=== PATIENT | female | born 1945 | race Caucasian/White ===

== ENCOUNTER 2016-08-05 23:33 | Inpatient (IN) | payer OTHER ==
[~2016-08-05] VITALS: Ht 160 cm; Wt 72.6 kg
[~2016-08-05 23:33] MED LIST: ACYC400T PO; ALBU8.5H2 HHN; ALPR0.5T PO; BECL8.7A5 HHN; CYCL-289 PO; FURO-144 PO; HYDR200T PO; IPRA0.2S18 HHN; MORP15TA17 PO; SERT100T PO; TRAZ-147 PO
[2016-08-05] MEDS ORDERED: ALBUTEROL FS 2.5 MG/0.5 ML VIAL.NEB ONE (23:49)
[2016-08-05] MEDS ORDERED: methylPREDNISolone SOD SUCC 125 MG/2ML VIAL ONE (23:50)
[2016-08-06] MEDS ORDERED: ALBUTEROL FS 2.5 MG/0.5 ML VIAL.NEB NEB ONE
[2016-08-06] MEDS ORDERED: methylPREDNISolone SOD SUCC 125 MG/2ML VIAL IV ONE
[2016-08-06 00:09] LABS: BASOPHILS % (AUTO) 0.6 % (0.0-2.0); DIFF TOTAL % 100 %; EOSINOPHILS # (AUTO) 0.1 /CMM (0.0-0.7); EOSINOPHILS % (AUTO) 0.6 % (0.0-6.0); HEMATOCRIT 41 % (33-45); HEMOGLOBIN 13.4 g/dL (11.5-14.8); LYMPHOCYTES # (AUTO) 1.6 /CMM (0.8-4.8); LYMPHOCYTES % (AUTO) 19.9 % (20.0-44.0); MEAN CORPUSCULAR HEMOGLOBIN 32 PG (26.0-33.0); MEAN CORPUSCULAR HGB CONC 33 g/dl (31.0-36.0); MEAN CORPUSCULAR VOLUME 98 fL (82-100); MONOCYTES # (AUTO) 0.8 /CMM (0.1-1.30); MONOCYTES % (AUTO) 9.3 % (2.0-12.0); NEUTROPHILS # (AUTO) 5.7 /CMM (1.8-8.9); NEUTROPHILS % (AUTO) 69.6 % (43.0-81.0); PLATELET COUNT (AUTO) 202 /CMM (150-450); RED BLOOD CELL COUNT(AUTO) 4.21 MIL/uL (4.0-5.2); WHITE BLOOD COUNT (AUTO) 8.1 K/uL (4.3-11.0)
[2016-08-06 00:20] LABS: CALCIUM, SERUM 8.8 mg/dL (8.5-10.1); CREATININE 0.8 mg/dL (0.6-1.3); POTASSIUM 3.3 mmol/L (3.5-5.1)
[2016-08-06 00:24] LABS: INR 1.03 (0.87-1.13); PROTHROMBIN TIME 11.1 SECS (9.5-12.7)
[2016-08-06 00:27] LABS: TROPONIN I 0.019 ng/mL (0.00-0.056)
[2016-08-06] MEDS ORDERED: ACETAMINOPHEN ES 500 MG TABLET ONE (00:28)
[2016-08-06 00:30] LABS: LACTIC ACID 1.1 mmol/L (0.4-2.0)
[2016-08-06] MEDS ORDERED: IOHEXOL-350 100 ML VIAL IV ONE (00:30)
[2016-08-06] MEDS ORDERED: ACETAMINOPHEN 325 MG TABLET PO ONE (00:30)
[2016-08-06 00:32] LABS: ALBUMIN 3.6 g/dL (3.4-5.0); BILIRUBIN,DIRECT 0.1 mg/dL (0.0-0.2); BILIRUBIN,TOTAL 0.4 mg/dL (0.2-1.0); INDIRECT BILIRUBIN 0.3 mg/dL (0.0-1.1)
[2016-08-06 01:12] LABS: KETONES,URINE NEGATIVE (NEGATIVE); LEUKOCYTE ESTERASE ,URINE NEGATIVE (NEGATIVE)
[2016-08-06 01:26] LABS: ADD UA MICROSCOPIC YES
[2016-08-06 01:32] LABS: ADD URINE CULTURE NO; MUCUS,URINE Rare /LPF (None Seen); RBC,URINE 0-3 /HPF (0-2); WBC,URINE 0-2 /HPF (0-3)
[2016-08-06] MEDS ORDERED: THEO400T PO (02:39)
[2016-08-06] MEDS ORDERED: CYCL5TAB PO (02:39)
[2016-08-06] MEDS ORDERED: VALA100026 PO (02:39)
[2016-08-06] MEDS ORDERED: MONT10TA22 PO (02:39)
[2016-08-06 04:00] VITALS: BP 133/61
[2016-08-06] MEDS ORDERED: LEVOFLOXACIN 500 MG /D5W 100ML 500 MG in PREMIX 1 EA IV SCH (04:00)
[2016-08-06] MEDS ORDERED: LEVOFLOXACIN 500 MG /D5W 100ML 100 ML IV ONE (04:17)
[2016-08-06] MEDS ORDERED: IV NS 0.9% 250 ML IV ONE (04:44)
[2016-08-06] MEDS ORDERED: IV SET PRIMARY PUMP SET 1 EA INFUS.SET MC ONE (04:44)
[2016-08-06] MEDS ORDERED: SECONDARY IV SET 1 EA INFUS.SET MC ONE (04:44)
[2016-08-06] MEDS ORDERED: methylPREDNISolone SOD SUCC 125 MG/2ML VIAL IV SCH (05:00)
[2016-08-06] MEDS ORDERED: methylPREDNISolone SOD SUCC 40 MG/ML VIAL ONE (05:12)
[2016-08-06] MEDS ORDERED: methylPREDNISolone SOD SUCC 125 MG/2ML VIAL ONE (05:16)
[2016-08-06 07:07] LABS: BASOPHILS % (AUTO) 0.2 % (0.0-2.0); DIFF TOTAL % 100 %; HEMATOCRIT 42 % (33-45); HEMOGLOBIN 13.5 g/dL (11.5-14.8); LYMPHOCYTES # (AUTO) 0.4 /CMM (0.8-4.8); LYMPHOCYTES % (AUTO) 5.8 % (20.0-44.0); MEAN CORPUSCULAR HEMOGLOBIN 32 PG (26.0-33.0); MEAN CORPUSCULAR HGB CONC 32 g/dl (31.0-36.0); MEAN CORPUSCULAR VOLUME 98 fL (82-100); MONOCYTES % (AUTO) 0.6 % (2.0-12.0); NEUTROPHILS # (AUTO) 6.8 /CMM (1.8-8.9); NEUTROPHILS % (AUTO) 93.4 % (43.0-81.0); PLATELET COUNT (AUTO) 189 /CMM (150-450); RED BLOOD CELL COUNT(AUTO) 4.24 MIL/uL (4.0-5.2); WHITE BLOOD COUNT (AUTO) 7.3 K/uL (4.3-11.0)
[2016-08-06] MEDS ORDERED: methylPREDNISolone SOD SUCC 40 MG/ML VIAL IV SCH (07:27)
[2016-08-06] MEDS ORDERED: IPRATROPIUM NEB FS 0.5 MG/2.5 ML AMPUL.NEB NEB SCH (07:35)
[2016-08-06] MEDS ORDERED: ALBUTEROL FS 2.5 MG/3 ML VIAL.NEB NEB SCH (07:35)
[2016-08-06] MEDS ORDERED: IPRATROPIUM/ALBUTEROL INHALER IH SCH (07:35)
[2016-08-06 07:39] LABS: CALCIUM, SERUM 8.7 mg/dL (8.5-10.1); CREATININE 0.8 mg/dL (0.6-1.3); POTASSIUM 3.4 mmol/L (3.5-5.1)
[2016-08-06 08:00] VITALS: BP 145/58
[2016-08-06] MEDS ORDERED: LEVO500T15 PO (08:59)
[2016-08-06] MEDS ORDERED: PRED10TA PO (08:59)
[2016-08-06] MEDS ORDERED: PRED20TA PO (08:59)
[2016-08-06] MEDS ORDERED: SERTRALINE HCL 50 MG TABLET PO SCH (09:12)
[2016-08-06] MEDS ORDERED: CYCLOBENZAPRINE 10 MG TABLET PO SCH ×2 (09:14→09:30)
[2016-08-06] MEDS: TRAZODONE 50 MG TABLET PO SCH ×2 (09:15→09:26)
[2016-08-06] MEDS ORDERED: MORPHINE SULFATE SR 15 MG TABLET.SA PO SCH (09:21)
[2016-08-06] MEDS ORDERED: ALPRAZOLAM 0.5 MG TABLET PO SCH (09:22)
[2016-08-06] MEDS ORDERED: LEVOFLOXACIN (500MG) 500 MG TABLET PO SCH (09:30)
[2016-08-06] MEDS ORDERED: MONTELUKAST SODIUM (10MG) 10 MG TABLET PO SCH (09:30)
[2016-08-06] MEDS ORDERED: POTASSIUM CHLORIDE 20 MEQ TAB.PRT.SR PO ONE (09:30)
[2016-08-06] MEDS ORDERED: HYDROXYCHLOROQUINE 200 MG TABLET PO SCH (09:30)
[2016-08-06] MEDS ORDERED: IPRATROPIUM NEB FS 0.5 MG/2.5 ML AMPUL.NEB NEB PRN (09:30)
[2016-08-06] MEDS ORDERED: FUROSEMIDE 40 MG TABLET PO SCH (13:00)
[2016-08-06] MEDS ORDERED: ALBUTEROL FS 2.5 MG/0.5 ML VIAL.NEB NEB PRN (13:30)
[2016-08-07] MEDS ORDERED: LEVOFLOXACIN 500 MG /D5W 100ML 500 MG in PREMIX 1 EA IV SCH (06:00)
[2016-08-07] MEDS ORDERED: predniSONE 10 MG TABLET PO SCH (09:00)
[2016-08-07] MEDS ORDERED: predniSONE 20 MG TABLET PO SCH (09:00)
== END 2016-08-06 12:33 | disposition home or self-care (01) | DRG 191 ==
LOC: ER 23:41 → TELE1 08-06 03:07 → UNDODISIN 08-06 10:56
PROVIDERS: ADMIT Internal Medicine; ATTEND Internal Medicine
DX: J44.1 Chronic obstructive pulmonary disease with (acute) exacerbation (principal); C34.90 Malignant neoplasm of unspecified part of unspecified bronchus or lung; Z87.891 Personal history of nicotine dependence; I25.10 Atherosclerotic heart disease of native coronary artery without angina pectoris; G89.29 Other chronic pain; I25.2 Old myocardial infarction; F32.9 Major depressive disorder, single episode, unspecified; I87.2 Venous insufficiency (chronic) (peripheral)
CPT/HCPCS: 36415; 71010-TC; 80048-TC; 80076-TC; 81000-TC; 83605-TC; 83880; 84484-TC; 85025-TC; 85730-TC; 87040-TC; 87081-TC; 93971-TC; A4216; A4606; J1956; J2920; J2930; J7050; Q9967; Z7610

== ENCOUNTER 2017-09-20 07:24 | Inpatient (IN) | payer OTHER ==
[~2017-09-20] VITALS: Ht 160 cm; Wt 69.9 kg
[~2017-09-20 07:24] MED LIST changes: -ACYC400T PO; -ALBU8.5H2 HHN; +ALBU8.5H8 HHN; +CYCL5TAB PO; -HYDR200T PO; +HYDR200T81 PO; +LEVO500T75 PO; +MONT10TA22 PO; +PRED10TA PO; +PRED20TA PO; +THEO400T PO; -TRAZ-147 PO; +TRAZ-214 PO; +VALA100026 PO
--- NOTE | 2017-09-20 07:37 | NUR ---
BIB DTR DUE NAUSEA, "FEELING SICK" AND NO APETITE. PATIENT IS AWAKE ALERT, APPERS IN NO DISTRESS. PATIENT IS AWAKE AND ALERT. PATIENT IS AFEBRILE. PATIENT ON O2 VIA NC @ 2LPM. GOWNED PATIENT AND CONNECTED TO TELE MONITOR. MD BASURTO AT BEDSIDE
--- NOTE | 2017-09-20 07:39 | NUR ---
MD BASURTO AT BEDSIDE
[2017-09-20] MEDS ORDERED: IV NS 0.9% 500 ML BAG IV ONE (08:00)
[2017-09-20 08:10] LABS: BASOPHILS # (AUTO) 0.1 /CMM (0.0-0.2); BASOPHILS % (AUTO) 0.5 % (0.0-2.0); EOSINOPHILS % (AUTO) 0.1 % (0.0-6.0); HEMATOCRIT 45 % (33-45); HEMOGLOBIN 14.9 g/dL (11.5-14.8); LYMPHOCYTES # (AUTO) 0.6 /CMM (0.8-4.8); LYMPHOCYTES % (AUTO) 5.7 % (20.0-44.0); MEAN CORPUSCULAR HGB CONC 33 g/dl (31.0-36.0); MEAN CORPUSCULAR VOLUME 95 fL (82-100); MONOCYTES # (AUTO) 0.9 /CMM (0.1-1.30); MONOCYTES % (AUTO) 7.9 % (2.0-12.0); NEUTROPHILS # (AUTO) 9.7 /CMM (1.8-8.9); NEUTROPHILS % (AUTO) 85.8 % (43.0-81.0); PLATELET COUNT (AUTO) 336 /CMM (150-450); RDW COEFFICIENT OF VARIATION 14.3 (11.5-15.0); RED BLOOD CELL COUNT(AUTO) 4.71 MIL/uL (4.0-5.2); WHITE BLOOD COUNT (AUTO) 11.3 K/uL (4.3-11.0)
[2017-09-20 08:26] LABS: TROPONIN I 0.028 ng/mL (0.00-0.056)
[2017-09-20 08:29] LABS: INR 1.41 (0.87-1.13)
--- NOTE | 2017-09-20 08:31 | NUR ---
URINE SAMPLE SENT TO LAB
[2017-09-20 08:34] LABS: ALANINE AMINOTRANSFERASE 46 U/L (12-78); ALBUMIN 3.2 g/dL (3.4-5.0); ALKALINE PHOSPHATASE 431 U/L (46-116); ASPARTATE AMINOTRANSFERASE 26 U/L (15-37); BILIRUBIN,DIRECT 0.2 mg/dL (0.0-0.2); BILIRUBIN,TOTAL 0.7 mg/dL (0.2-1.0); CALCIUM, SERUM 8.8 mg/dL (8.5-10.1); CARBON DIOXIDE 31 mmol/L (21-32); CHLORIDE 92 mmol/L (98-107); CREATININE 0.6 mg/dL (0.6-1.3); GLUCOSE 96 mg/dL (74-106); SODIUM SERUM 134 mmol/L (136-145); TOTAL PROTEIN, SERUM 7.5 g/dL (6.4-8.2); UREA NITROGEN, BLOOD 7 mg/dL (7-18)
[2017-09-20 08:37] LABS: POTASSIUM 2.6 mmol/L (3.5-5.1)
[2017-09-20 08:47] LABS: APPEARANCE,URINE CLEAR (CLEAR); BILIRUBIN,URINE NEGATIVE (NEGATIVE); BLOOD, URINE NEGATIVE Ery/uL (NEGATIVE); COLOR,URINE YELLOW (YELLOW); KETONES,URINE 1+ (NEGATIVE); LEUKOCYTE ESTERASE ,URINE NEGATIVE (NEGATIVE); NITRITE, URINE NEGATIVE (NEGATIVE); PROTEIN,URINE NEGATIVE (NEGATIVE); UGLUCOSE NEGATIVE (NEGATIVE); UROBILINOGEN,URINE 0.2 EU/dL (0.2)
[2017-09-20] MEDS ORDERED: POTASSIUM CHLORIDE 20 MEQ TAB.PRT.SR PO ONE ×3 (08:51→10:00)
[2017-09-20] MEDS ORDERED: CEFTRIAXONE 1GM BAG (ER ONLY) 50 ML IV ONE (08:51)
[2017-09-20] MEDS ORDERED: Magnesium 1GM/D5W 100ML PREMIX 100 ML IV ONE (08:51)
[2017-09-20] MEDS ORDERED: Magnesium 1GM/D5W 100ML PREMIX PIGGYBACK IV ONE (09:00)
[2017-09-20] MEDS ORDERED: CEFTRIAXONE 1GM BAG (ER ONLY) 1 GM/50 ML PIGGYBACK IV ONE (09:00)
[2017-09-20] MEDS ORDERED: PRED5TAB PO (09:03)
[2017-09-20] MEDS ORDERED: ALBU2TAB4 PO (09:03)
[2017-09-20] MEDS ORDERED: POLY17PO4 PO (09:03)
--- NOTE | 2017-09-20 09:10 | NUR ---
REPORT GIVEN TO CAITLIN GREENWOOD FOR PETE
--- NOTE | 2017-09-20 09:27 | NUR ---
DR. SIM AT BEDSIDE.
--- NOTE | 2017-09-20 09:40 | NUR ---
RN NOTE RECEIVED REPORT FROM DENILSON FROM ER. RECEIVED PATIENT ALERT AND ORIENTED X 4, SHE IS ABLE TO MAKE THINGS KNOWN AND VERBALIZE NEEDS. BREATHING EVEN AND UNLABORED, ON CONTINUOUS O2 2L VIA NC. NO DISTRESS NOTED. PATIENT DENIES PAIN AT THIS TIME. ON PARALEGAL SUPERVISOR SINUS TACH HR OF 110. RIGHT FA IV WAS REMOVED SECONDARY TO INFILTRATION. REINSERTED NEW IV SITE ON LEFT HAND 22 GAUGE INTACT AND PATENT. PATIENT IS ABLE TO AMBULATE WITH ASSISTANCE TO BATHROOM. BED LOCK AND LOW POSITION. ALL SAFETY MEASURES PROVIDED. WILL CONTINUE TO MONITOR CONTINUITY OF CARE.
[2017-09-20 09:45] VITALS: BP 121/63
--- NOTE | 2017-09-20 09:50 | NUR ---
PATIENT WAS TRANSFFERED TO TELE1. S
[2017-09-20 10:00] VITALS: BP 121/63
[2017-09-20] MEDS ORDERED: ALBUTEROL FS 2.5 MG/0.5 ML VIAL.NEB NEB PRN (10:00)
[2017-09-20] MEDS: MORPHINE SULFATE SR 15 MG TABLET.SA PO SCH ×2 (10:00→16:25)
[2017-09-20] MEDS: MONTELUKAST SODIUM (10MG) 10 MG TABLET PO SCH (11:31)
[2017-09-20] MEDS: ALPRAZOLAM 0.5 MG TABLET PO SCH ×3 (11:31→16:25)
[2017-09-20] MEDS: POLYETHYLENE GLYCOL 3350 17 GM POWD.PACK PO SCH (11:31)
[2017-09-20] MEDS: HYDROXYCHLOROQUINE 200 MG TABLET PO SCH ×2 (11:31→16:23)
[2017-09-20] MEDS: ENOXAPARIN SODIUM 40 MG/0.4 ML DISP.SYRIN SQ SCH (11:34)
[2017-09-20] MEDS: Potassium Chloride 20 MEQ in IV NS 0.9% 1,000 ML IV PRN (12:02)
[2017-09-20] MEDS: LEVOFLOXACIN 500 MG /D5W 100ML 500 MG in PREMIX 1 EA IV SCH (13:02)
[2017-09-20] MEDS: CYCLOBENZAPRINE 10 MG TABLET PO SCH (13:07)
[2017-09-20] MEDS: THEOPHYLLINE TAB 24HR 400 MG TAB.SR. PO SCH (13:50)
[2017-09-20] MEDS ORDERED: DIGOXIN INJ 0.5 MG/2 ML AMPUL IV ONE (15:30)
[2017-09-20] MEDS: ONDANSETRON HCL/PF 4 MG/2 ML VIAL IV PRN (15:40)
--- NOTE | 2017-09-20 15:40 | NUR ---
RN NOTE CALLED MD DR SIM RELAYED PATIENT HR IS A-FIB SINUS TACHY AT 130-140, MD ORDERED DIGOXIN 0.25MCG IV X 1, AND METOPROLOL 25MG BID PO, AND ZOFRAN 4MG IV Q4H PRN. PATIENT MADE AWARE CARRIED OUT AND NOTED.
[2017-09-20 16:00] VITALS: BP 99/55
--- NOTE | 2017-09-20 16:10 | NUR ---
RN NOTE AFTER MEDICATION GIVEN PATIENT REMAINED STABLE WITH CARDIAC RHYTHM OF UNCONTROLLED A-FIB HR OF 118. NO DISTRESS NOTED
[2017-09-20] MEDS: TRAZODONE 50 MG TABLET PO SCH (16:25)
[2017-09-20] MEDS ORDERED: METOPROLOL TARTRATE 25 MG TABLET PO SCH (17:00)
--- NOTE | 2017-09-20 18:41 | NUR ---
RN NOTE PATIENT REMAINED STABLE WITH NO ACUTE DISTRESS NOTED. SEISMOLOGY TEACHER OF UNCONTROLLED A-FIB HR OF 117. WILL ENDORSE TO NEXT SHIFT TO CONTINUE CONTINUITY OF CARE.
--- NOTE | 2017-09-20 19:30 | NUR ---
BRIDGE PAINTER NOTES, RECEIVED PATIENT IN BED ALERT AND ORIENTED ABLE TO COMMUNICATE NEEDS, BREATHING EVEN AND UNLABORED NO S/S OF ACUTE DISTRESS/SOB NOTED AT THIS TIME, IVF RUNNING AT THIS TIME, FOR LOW POTASSIUM LEVEL, IV SITE INTACT AND PATENT, BED LOCKED AN IN LOWEST POSITION, CALL LIGHT W/I REACH, INDEPENDENT WITH POSITIONING, ASSISTED AT ALL TIME FOR TOILETING. WILL CONTINUE TO MONITOR CLOSELY.
[2017-09-20] MEDS: ALPRAZOLAM 0.25 MG TABLET PO PRN (23:05)
[2017-09-21] VITALS: BP 124/71
--- NOTE | 2017-09-21 01:30 | NUR ---
RN TD NOTES, TRANSFERRED PATIENT TO CAITLIN WHITING FOR CONTINUATION OF CARE.
--- NOTE | 2017-09-21 01:35 | NUR ---
TELE/RN NOTES RECEIVED REPORT AND PT. FROM CAITLIN MOYA. RECEIVED PT. LYING IN BED. PT. IS AWAKE, ALERT AND ORIENTED X4. BREATHING EVEN AND UNLABORED ON 2LPM O2 VIA NC. NO SOB, RESPIRATORY DISTRESS OR COMPLAINTS OF PAIN NOTED AT THIS TIME. PT. WITH EXTERNAL AIRCRAFT DESIGNER PRESENT AND INTACT CURRENT RHYTHM = AFIB HR 118. PT. WITH LEFT HAND 22 GAUGE PERIPHERAL IV PRESENT, PATENT AND INTACT ADMINISTERING TO PT. NS WITH 20 MEQ KCL @ 100ML/HR. BED LOCKED AND IN LOWEST POSITION, SIDE RAILS UP X3, BED ALARM ON, CALL LIGHT WITHIN REACH, WILL CONTINUE TO MONITOR.
--- NOTE | 2017-09-21 03:58 | NUR ---
TELE/RN NOTES NOTIFIED DR. SIM PT. IS UNCONTROLLED AFIB HR 130'S-140'S. PT. IS ASYMPTOMATIC, NO COMPLAINTS OF CHEST PAIN OR PALPITATIONS. PT. BLOOD PRESSURE IS STABLE BP 113/85. BREATHING EVEN AND UNLABORED ON 3LPM O2 VIA NC. PER DR. SIM NEW ORDERS: METOPROLOL 50MG PO TIMES ONE NOW, AND INCREASE PT. SCHEDULED METOPROLOL BID FROM 25MG PO BID TO 50MG PO BID. WILL CARRY OUT ORDERS. WILL CONTINUE TO MONITOR.
[2017-09-21 04:00] VITALS: BP 113/55
[2017-09-21] MEDS ORDERED: METOPROLOL TARTRATE 50 MG TABLET PO ONE (04:30)
[2017-09-21] MEDS ORDERED: IV PREMIX NS +20MEQ KCL 1 L IV ONE (04:46)
[2017-09-21] MEDS: Potassium Chloride 20 MEQ in IV NS 0.9% 1,000 ML IV PRN (04:50)
[2017-09-21 06:45] LABS: ALANINE AMINOTRANSFERASE 40 U/L (12-78); ALBUMIN 2.7 g/dL (3.4-5.0); ALKALINE PHOSPHATASE 338 U/L (46-116); ASPARTATE AMINOTRANSFERASE 30 U/L (15-37); BASOPHILS % (AUTO) 0.3 % (0.0-2.0); BILIRUBIN,TOTAL 0.5 mg/dL (0.2-1.0); CALCIUM, SERUM 8.6 mg/dL (8.5-10.1); CARBON DIOXIDE 28 mmol/L (21-32); CHLORIDE 101 mmol/L (98-107); EOSINOPHILS % (AUTO) 0.4 % (0.0-6.0); GLUCOSE 82 mg/dL (74-106); HEMATOCRIT 45 % (33-45); HEMOGLOBIN 14.7 g/dL (11.5-14.8); LYMPHOCYTES # (AUTO) 0.8 /CMM (0.8-4.8); LYMPHOCYTES % (AUTO) 7.1 % (20.0-44.0); MEAN CORPUSCULAR HGB CONC 33 g/dl (31.0-36.0); MEAN CORPUSCULAR VOLUME 97 fL (82-100); MONOCYTES # (AUTO) 1.1 /CMM (0.1-1.30); MONOCYTES % (AUTO) 9.9 % (2.0-12.0); NEUTROPHILS # (AUTO) 8.8 /CMM (1.8-8.9); NEUTROPHILS % (AUTO) 82.3 % (43.0-81.0); PLATELET COUNT (AUTO) 288 /CMM (150-450); POTASSIUM 4.7 mmol/L (3.5-5.1); RDW COEFFICIENT OF VARIATION 14.6 (11.5-15.0); RED BLOOD CELL COUNT(AUTO) 4.68 MIL/uL (4.0-5.2); SODIUM SERUM 137 mmol/L (136-145); TOTAL PROTEIN, SERUM 6.5 g/dL (6.4-8.2); UREA NITROGEN, BLOOD 8 mg/dL (7-18); WHITE BLOOD COUNT (AUTO) 10.7 K/uL (4.3-11.0)
--- NOTE | 2017-09-21 06:45 | NUR ---
TELE/RN NOTES PT. IS LYING IN BED RESTING. BREATHING EVEN AND UNLABORED ON 2LPM O2 VIA NC. NO SOB, RESPIRATORY DISTRESS OR COMPLAINTS OF PAIN NOTED AT THIS TIME. PT. WITH EXTERNAL MOLD MACHINE OPERATOR PRESENT AND INTACT CURRENT RHYTHM = AFIB HR 109. PT. WITH LEFT HAND 22 GAUGE PERIPHERAL IV PRESENT, PATENT AND INTACT ADMINISTERING TO PT. NS WITH 20 MEQ KCL @ 100ML/HR. ALL PT. NEEDS MET. BED LOCKED AND IN LOWEST POSITION, SIDE RAILS UP X3, BED ALARM ON, CALL LIGHT WITHIN REACH, WILL ENDORSE TO DAYSHIFT NURSE FOR CONTINUITY OF CARE.
[2017-09-21 06:49] LABS: CREATININE 0.5 mg/dL (0.6-1.3)
--- NOTE | 2017-09-21 07:25 | NUR ---
TELE/RN NOTES PT. IS LYING IN BED RESTING. BREATHING EVEN AND UNLABORED ON 2LPM O2 VIA NC. NO SOB, NO RESPIRATORY DISTRESS OR COMPLAINTS OF PAIN NOTED AT THIS TIME. PT. WITH EXTERNAL CHROME TANNING DRUM OPERATOR PRESENT AND INTACT CURRENT RHYTHM = AFIB HR 109. PT. WITH LEFT HAND 22 GAUGE PERIPHERAL IV PRESENT, PATENT AND INTACT ADMINISTERING TO PT. NS WITH 20 MEQ KCL @ 100ML/HR. ALL PT. NEEDS MET. BED LOCKED AND IN LOWEST POSITION, SIDE RAILS UP X3, BED ALARM ON, CALL LIGHT WITHIN REACH, WILL CONTINUE TO MONITOR
[2017-09-21 08:00] VITALS: BP 109/70
[2017-09-21] MEDS: MORPHINE SULFATE SR 15 MG TABLET.SA PO SCH ×2 (08:29→18:16)
[2017-09-21] MEDS: HYDROXYCHLOROQUINE 200 MG TABLET PO SCH ×2 (08:31→18:16)
[2017-09-21] MEDS: ONDANSETRON HCL/PF 4 MG/2 ML VIAL IV PRN (08:31)
[2017-09-21] MEDS: TRAZODONE 50 MG TABLET PO SCH ×2 (08:32→18:21)
[2017-09-21] MEDS: CYCLOBENZAPRINE 10 MG TABLET PO SCH (08:32)
[2017-09-21] MEDS: SERTRALINE HCL 50 MG TABLET PO SCH (08:32)
[2017-09-21] MEDS: MONTELUKAST SODIUM (10MG) 10 MG TABLET PO SCH (08:32)
[2017-09-21] MEDS: ENOXAPARIN SODIUM 40 MG/0.4 ML DISP.SYRIN SQ SCH (08:44)
[2017-09-21] MEDS: POLYETHYLENE GLYCOL 3350 17 GM POWD.PACK PO SCH (08:46)
[2017-09-21] MEDS: THEOPHYLLINE TAB 24HR 400 MG TAB.SR. PO SCH (08:47)
[2017-09-21] MEDS ORDERED: IPRATROPIUM NEB FS 0.5 MG/2.5 ML AMPUL.NEB NEB PRN (09:00)
[2017-09-21] MEDS ORDERED: METOPROLOL TARTRATE 50 MG TABLET PO SCH (09:00)
[2017-09-21] MEDS: ALBUTEROL FS 2.5 MG/3 ML VIAL.NEB NEB SCH ×3 (09:30→23:29)
[2017-09-21] MEDS: ACETYLCYSTEINE 20% SOLN 800 MG/4 ML VIAL NEB SCH ×3 (09:32→23:29)
[2017-09-21] MEDS: IPRATROPIUM NEB FS 0.5 MG/2.5 ML AMPUL.NEB NEB SCH ×3 (09:32→23:29)
[2017-09-21] MEDS: ASPIRIN EC 325 MG TABLET.DR PO SCH (09:58)
[2017-09-21] MEDS: methylPREDNISolone SOD SUCC 40 MG/ML VIAL IV SCH ×3 (10:46→17:00)
--- NOTE | 2017-09-21 11:08 | NUR ---
WOUND CARE CONSULT: PT PRESENTS WITH SKIN TEAR TO LEFT HAND WHICH SHE STATES HAPPENED TWO WEEKS AGO. SACRAL SCARRING NOTED WITH BLANCHABLE REDNESS. PT STATES THAT SHE LOST 100 LBS DUE TO HER ILLNESS. ALL SKIN PROTECTION AND WOUND RECOMMENDATIONS DISCUSSED WITH NURSING STAFF. RECOMMEND SURGICAL EVAL FOR LEFT HAND WOUND. WILL SEE PRN. FRENCH IN AGREEMENT WITH PLAN OF CARE. Addendum: 09/21/17 at 1110 by SACHI ORTEGA WNDNU Amended: Links added.
[2017-09-21] MEDS: LEVOFLOXACIN 500 MG /D5W 100ML 500 MG in PREMIX 1 EA IV SCH (11:56)
[2017-09-21 12:00] VITALS: BP 119/53
--- NOTE | 2017-09-21 12:29 | NUR ---
RN NOTES CALLED DR. SIM TO CLARIFY THEOPHYLLINE PT STATING SHE IS TAKING 1000MG DAILY PER DR. SIM PT TO TAKE 400 MG DAILY TOTAL AND OKAY TO GIVE ANOTHER 200MG TODAY, PER DR. SIM PT TO CONTINUE NS + 20 MEQ OF POTASSIUM IV FLUIDS, POTASSIUM LEVEL 4.7 WILL CONTINUE TO MONITOR
[2017-09-21] MEDS: DIGOXIN 0.125 MG TABLET PO SCH (13:32)
[2017-09-21] MEDS: DILTIAZEM HCL 30 MG TABLET PO SCH ×3 (13:33→23:24)
[2017-09-21] MEDS: ALPRAZOLAM 0.25 MG TABLET PO PRN ×2 (14:38→21:03)
[2017-09-21] MEDS ORDERED: THEOPHYLLINE TAB 24HR 400 MG TAB.SR. PO ONE (15:30)
[2017-09-21 16:00] VITALS: BP 114/55
[2017-09-21] MEDS ORDERED: MORPHINE SULFATE IR 15 MG TABLET PO PRN (19:30)
--- NOTE | 2017-09-21 19:30 | NUR ---
PROGRAM OR PROJECT ADMINISTRATOR NOTES, RECEIVED PATIENT IN BED ALERT AND ORIENTED ABLE TO COMMUNICATE NEEDS, BREATHING EVEN AND UNLABORED NO S/S OF ACUTE DISTRESS/SOB NOTED AT THIS TIME, CONTINUE IN IVF 20meQ RUNNING AT THIS TIME DR. SIM, IV SITE INTACT AND PATENT IN RIGHT HAND, BED LOCKED AN IN LOWEST POSITION, CALL LIGHT W/I REACH, INDEPENDENT WITH POSITIONING, ASSISTED AT ALL TIME FOR TOILETING. WILL CONTINUE TO MONITOR CLOSELY
--- NOTE | 2017-09-21 19:30 | NUR ---
TELE/RN NOTES PT. IS LYING IN BED RESTING. BREATHING EVEN AND UNLABORED ON 3LPM O2 VIA NC. NO SOB, NO RESPIRATORY DISTRESS OR COMPLAINTS OF PAIN NOTED AT THIS TIME. PT. WITH EXTERNAL DIRECTOR OF SCIENCE PRESENT AND INTACT CURRENT RHYTHM = AFIB HR 84. PT. WITH RFA 22 GAUGE PERIPHERAL IV PRESENT, PATENT AND INTACT ADMINISTERING TO PT. NS WITH 20 MEQ KCL @ 100ML/HR. ALL PT. NEEDS MET. BED LOCKED AND IN LOWEST POSITION, SIDE RAILS UP X3, BED ALARM ON, CALL LIGHT WITHIN REACH, ENDORSED TO NEXT SHIFT FOR CONTINUITY OF CARE
[2017-09-21 20:00] VITALS: BP 104/54
[2017-09-22] VITALS: BP 126/92
[2017-09-22] MEDS ORDERED: IV PREMIX NS +20MEQ KCL 1 L IV ONE (02:35)
[2017-09-22] MEDS: Potassium Chloride 20 MEQ in IV NS 0.9% 1,000 ML IV PRN (02:44)
[2017-09-22] MEDS: DILTIAZEM HCL 30 MG TABLET PO SCH ×4 (05:34→23:09)
--- NOTE | 2017-09-22 06:45 | NUR ---
DIRECTOR EDUCATIONAL RADIO NOTES, PATIENT IN BED SEEPING AT THIS TIME, BUT EASILY AROUSABLE, ABLE TO COMMUNICATE NEEDS, BREATHING EVEN AND UNLABORED NO S/S OF ACUTE DISTRESS/SOB NOTED AT THIS TIME, CONTINUE IN IVF 20meQ RUNNING AT THIS TIME DR. SIM, IV SITE INTACT AND PATENT IN RIGHT HAND, BED LOCKED AN IN LOWEST POSITION, NO SIGNIFICANT PETE DURING THE SHIFT NOTED WITH HR ELEVATED AT TIMES, CARDIZEM ADMINISTERED ORDERED,CALL LIGHT W/I REACH, INDEPENDENT WITH POSITIONING, ASSISTED AT ALL TIME FOR TOILETING. WILL ENDORSE CONTINUITY OF CARE TO ONCOMING SHIFT
[2017-09-22] MEDS: ACETYLCYSTEINE 20% SOLN 800 MG/4 ML VIAL NEB SCH ×3 (07:34→23:27)
[2017-09-22] MEDS: ALBUTEROL FS 2.5 MG/3 ML VIAL.NEB NEB SCH ×3 (07:34→23:27)
[2017-09-22] MEDS: IPRATROPIUM NEB FS 0.5 MG/2.5 ML AMPUL.NEB NEB SCH ×3 (07:34→23:27)
--- NOTE | 2017-09-22 07:40 | NUR ---
DINING SERVICE SUPERVISOR OPENING RECEIVED PATIENT A.OX3 STATES CONSTANT PAIN WHICH SHE TAKES MS PO 60MG Q12H. PER EMAR PATIENT IS TO START THIS DOSE TONIGHT..PER MD RONEY WATKINS TO GIVE THIS AM. PATIENT ON 3LPM NC SATTING 94%. NO SOB, DIFFICULTY BREATHING. PATIENT DENIES N/V/D AT THIS TIME. ALL NEEDS IN REACH, SAFETY PRECAUTIONS IN PLACE. TELE UNCONTROLLED AFIB 110-130. MESSAGE TO DR SIM IN REGARDS TO PATIENT COMPLAINING STILL OF PALPITATIONS/ ACID REFLUX TYPE PAIN AND TELE UNCONTROLLED AFIB THROUGHOUT NIGHT.
[2017-09-22 07:43] LABS: HEMATOCRIT 43 % (33-45); HEMOGLOBIN 14.1 g/dL (11.5-14.8); LYMPHOCYTES # (AUTO) 0.6 /CMM (0.8-4.8); LYMPHOCYTES % (AUTO) 5.1 % (20.0-44.0); MEAN CORPUSCULAR HGB CONC 33 g/dl (31.0-36.0); MEAN CORPUSCULAR VOLUME 96 fL (82-100); MONOCYTES # (AUTO) 0.7 /CMM (0.1-1.30); MONOCYTES % (AUTO) 5.4 % (2.0-12.0); NEUTROPHILS # (AUTO) 11.2 /CMM (1.8-8.9); NEUTROPHILS % (AUTO) 89.5 % (43.0-81.0); PLATELET COUNT (AUTO) 284 /CMM (150-450); RDW COEFFICIENT OF VARIATION 14.5 (11.5-15.0); RED BLOOD CELL COUNT(AUTO) 4.52 MIL/uL (4.0-5.2); WHITE BLOOD COUNT (AUTO) 12.6 K/uL (4.3-11.0)
--- NOTE | 2017-09-22 07:48 | NUR ---
OPTIONS TRADER NOTES PER DR SIM ORDER METOPROLOL 50MG Q12H. NO OTHER ORDERS.
[2017-09-22 07:55] LABS: CARBON DIOXIDE 27 mmol/L (21-32); CHLORIDE 103 mmol/L (98-107); CREATININE 0.6 mg/dL (0.6-1.3); GLUCOSE 122 mg/dL (74-106); POTASSIUM 5.3 mmol/L (3.5-5.1); SODIUM SERUM 137 mmol/L (136-145); UREA NITROGEN, BLOOD 15 mg/dL (7-18)
[2017-09-22 08:00] VITALS: BP 98/42
[2017-09-22] MEDS ORDERED: MORPHINE SULFATE SR 15 MG TABLET.SA PO SCH ×2 (08:00→21:00)
[2017-09-22] MEDS: MORPHINE SULFATE SR 30 MG TABLET.SA PO SCH ×2 (08:17→20:38)
[2017-09-22] MEDS: SERTRALINE HCL 50 MG TABLET PO SCH (08:18)
[2017-09-22] MEDS: TRAZODONE 50 MG TABLET PO SCH ×2 (08:18→17:15)
[2017-09-22] MEDS: HYDROXYCHLOROQUINE 200 MG TABLET PO SCH ×2 (08:18→17:15)
[2017-09-22] MEDS: MONTELUKAST SODIUM (10MG) 10 MG TABLET PO SCH (08:18)
[2017-09-22] MEDS: methylPREDNISolone SOD SUCC 40 MG/ML VIAL IV SCH ×3 (08:18→17:15)
[2017-09-22] MEDS: ASPIRIN EC 325 MG TABLET.DR PO SCH (08:18)
[2017-09-22] MEDS: CYCLOBENZAPRINE 10 MG TABLET PO SCH (08:19)
[2017-09-22] MEDS: POLYETHYLENE GLYCOL 3350 17 GM POWD.PACK PO SCH (08:19)
[2017-09-22] MEDS: ENOXAPARIN SODIUM 40 MG/0.4 ML DISP.SYRIN SQ SCH (08:28)
--- NOTE | 2017-09-22 08:44 | NUR ---
TD RN NOTES DR SIM AT BEDSIDE. UPDATED ON PATIENT CONDITION. PER MD PATIENT TO START ON AMIO DRIP WITH PROTOCOL BOLUS/DRIP. PATIENT DAUGHTER BIB CALLED AND UPDATED BY DR SIM PER REQUEST WELL.
[2017-09-22] MEDS ORDERED: AMIODARONE 150 MG in IV D5W 100 ML IV ONE (09:00)
[2017-09-22] MEDS ORDERED: METOPROLOL TARTRATE 50 MG TABLET PO SCH (09:00)
[2017-09-22] MEDS: IV 1/2NS 1000 ML 1,000 ML IV PRN (09:00)
[2017-09-22] MEDS ORDERED: AMIODARONE 900 MG in IV D5W 482 ML IV PRN (09:00)
--- NOTE | 2017-09-22 09:23 | NUR ---
THERAPEUTIC SUPPORT STAFF NOTES NOTIFIED DR SIM PATIENT HR CONTROLLED AFIB 70'S AND PATIENT BP 93/54 PRIOR TO STARTING AMIO DRIP. PER MD YAN TO DC AMIO DRIP AND REORDER METOPROLOL 50MG Q12H PO.
[2017-09-22 09:25] VITALS: BP 95/42
[2017-09-22 12:00] VITALS: BP 101/50
[2017-09-22] MEDS: PIPERACILLIN /TAZOBACTAM 3.375 G in IV D5W 50 ML IV SCH ×3 (12:16→23:09)
[2017-09-22] MEDS: DIGOXIN 0.125 MG TABLET PO SCH (12:27)
[2017-09-22] MEDS: THEOPHYLLINE TAB 24HR 400 MG TAB.SR. PO SCH (16:22)
--- NOTE | 2017-09-22 18:54 | NUR ---
WELDER 2ND SHIFT CLOSING ALL DUE MEDS GIVEN AND ALL NEEDS MET. PATIENT STABLE. PAIN CONTROLLED WITH DONTE MEDICATIONS. SAFETY PRECAUTIONS IN PLACE. NEEDS ASSESSED. NC 2LPM. IVF RUNNING ORDERED. CARE ENDORSED TO RN FOR PETE
--- NOTE | 2017-09-22 19:20 | NUR ---
DISTRIBUTOR OPERATOR OPENING NOTES RECEIVED REPORT FROM TRAMAINE TUCKER. PATIENT A/A/O X3, ABLE TO VERBALIZE NEEDS. BREATHING EVEN & UNLABORED, TOLERATING O2 @ 2LPM VIA NC. ON TELE W/ UNCONTROLLED A-FIB, HR 99. DENIES ANY CHEST PAIN OR DISCOMFORT. RIGHT FOREARM IV #22, INTACT & PATENT W/ DRESSING CDI & IVF 1/2 NS @ 75 ML/HR. NO SIGNS OF INFILTRATION NOTED. PATIENT RESTING COMFORTABLY IN BED W/ SAFETY MEASURES IN PLACE & CALL LIGHT WITHIN REACH. INSTRUCTED TO CALL FOR ASSISTANCE. WILL CONTINUE TO MONITOR.
[2017-09-22 20:00] VITALS: BP 117/59
[2017-09-22] MEDS: METOPROLOL TARTRATE 50 MG TABLET PO SCH (20:37)
[2017-09-22] MEDS: ALPRAZOLAM 0.25 MG TABLET PO PRN (20:38)
[2017-09-23] VITALS (7 sets, daily range): BP systolic 99–122; BP diastolic 54–70
[2017-09-23] MEDS: IV 1/2NS 1000 ML 1,000 ML IV PRN ×2 (01:03→16:05)
[2017-09-23] MEDS: PIPERACILLIN /TAZOBACTAM 3.375 G in IV D5W 50 ML IV SCH ×4 (05:08→23:53)
[2017-09-23] MEDS: DILTIAZEM HCL 30 MG TABLET PO SCH (05:54)
--- NOTE | 2017-09-23 07:30 | NUR ---
DOUGH BRAKER AM OPENING RECEIVED PATIENT A.OX3 STATES CONSTANT PAIN WHICH SHE TAKES MS PO 60MG Q12H. PATIENT ON 2LPM NC SATTING 98%. NO SOB, DIFFICULTY BREATHING. PATIENT DENIES N/V/D AT THIS TIME. TELE UNCONTROLLED AFIB HR 74. AWARE. RFA G 22 WITH 1/2 NS AT 75 ML/HR INFUSING WELL. SITE CLEAR. SEE NURSING FLOWSHEET FOR SKIN ISSUES. USES BSC. ON SOFT DIET. CALL LIGHT WITHIN REACH SAFETY MEASURES IN PLACE. WILL CONTINUE TO MONITOR.
[2017-09-23] MEDS: IPRATROPIUM NEB FS 0.5 MG/2.5 ML AMPUL.NEB NEB SCH ×3 (07:56→23:30)
[2017-09-23] MEDS: ALBUTEROL FS 2.5 MG/3 ML VIAL.NEB NEB SCH ×3 (07:56→23:30)
[2017-09-23] MEDS: ACETYLCYSTEINE 20% SOLN 800 MG/4 ML VIAL NEB SCH ×3 (07:56→23:30)
[2017-09-23 08:07] LABS: HEMATOCRIT 40 % (33-45); HEMOGLOBIN 13.2 g/dL (11.5-14.8); LYMPHOCYTES # (AUTO) 0.6 /CMM (0.8-4.8); LYMPHOCYTES % (AUTO) 4.5 % (20.0-44.0); MEAN CORPUSCULAR HGB CONC 33 g/dl (31.0-36.0); MEAN CORPUSCULAR VOLUME 96 fL (82-100); MONOCYTES # (AUTO) 0.6 /CMM (0.1-1.30); NEUTROPHILS # (AUTO) 13.2 /CMM (1.8-8.9); NEUTROPHILS % (AUTO) 91.5 % (43.0-81.0); PLATELET COUNT (AUTO) 261 /CMM (150-450); RDW COEFFICIENT OF VARIATION 14.7 (11.5-15.0); RED BLOOD CELL COUNT(AUTO) 4.23 MIL/uL (4.0-5.2); WHITE BLOOD COUNT (AUTO) 14.4 K/uL (4.3-11.0)
[2017-09-23] MEDS: HYDROXYCHLOROQUINE 200 MG TABLET PO SCH ×2 (08:44→17:03)
[2017-09-23] MEDS: methylPREDNISolone SOD SUCC 40 MG/ML VIAL IV SCH ×3 (08:44→17:03)
[2017-09-23] MEDS: POLYETHYLENE GLYCOL 3350 17 GM POWD.PACK PO SCH (08:44)
[2017-09-23] MEDS: CYCLOBENZAPRINE 10 MG TABLET PO SCH (08:45)
[2017-09-23] MEDS: SERTRALINE HCL 50 MG TABLET PO SCH (08:45)
[2017-09-23] MEDS: ASPIRIN EC 325 MG TABLET.DR PO SCH (08:45)
[2017-09-23] MEDS: MONTELUKAST SODIUM (10MG) 10 MG TABLET PO SCH (08:45)
[2017-09-23] MEDS: MORPHINE SULFATE SR 30 MG TABLET.SA PO SCH ×2 (08:45→21:05)
[2017-09-23] MEDS: ENOXAPARIN SODIUM 40 MG/0.4 ML DISP.SYRIN SQ SCH (08:45)
[2017-09-23] MEDS: TRAZODONE 50 MG TABLET PO SCH ×2 (08:46→17:03)
[2017-09-23] MEDS: METOPROLOL TARTRATE 50 MG TABLET PO SCH ×2 (08:46→21:05)
[2017-09-23 08:51] LABS: CALCIUM, SERUM 8.3 mg/dL (8.5-10.1); CARBON DIOXIDE 25 mmol/L (21-32); CHLORIDE 104 mmol/L (98-107); CREATININE 0.5 mg/dL (0.6-1.3); GLUCOSE 157 mg/dL (74-106); POTASSIUM 4.5 mmol/L (3.5-5.1); SODIUM SERUM 136 mmol/L (136-145); UREA NITROGEN, BLOOD 15 mg/dL (7-18)
[2017-09-23] MEDS: AMIODARONE HCL 200 MG TABLET PO SCH ×2 (08:52→21:04)
--- NOTE | 2017-09-23 09:30 | NUR ---
NURSING CARE PARTNER NOTES DUE MEDS GIVEN. SEEN BY DR. SIM.
[2017-09-23] MEDS: DILTIAZEM HCL CD 240 MG PO SCH (10:06)
[2017-09-23] MEDS: PANTOPRAZOLE 40 MG TABLET.DR PO SCH (10:08)
--- NOTE | 2017-09-23 12:05 | NUR ---
SNUFF PACKING MACHINE OPERATOR NOTES STARTED ZOSYN IV.
[2017-09-23] MEDS: THEOPHYLLINE TAB 24HR 400 MG TAB.SR. PO SCH (16:03)
[2017-09-23] MEDS: ALPRAZOLAM 0.25 MG TABLET PO PRN (17:03)
--- NOTE | 2017-09-23 17:03 | NUR ---
SOILED LINEN DISTRIBUTOR NOTES STARTED ZOSYN IV.
--- NOTE | 2017-09-23 19:03 | NUR ---
SCIENTIFIC RESEARCH MANAGER CLOSING NOTES PATIENT IN BED, RESTING COMFORTABLY, A.OX3 STATES, ON 2LPM NC SATTING 98%. NO SOB OR DIFFICULTY BREATHING. PATIENT DENIES N/V/D AT THIS TIME. TELE UNCONTROLLED AFIB HR 7Os. AWARE. RFA G 22 WITH 1/2 NS AT 75 ML/HR INFUSING WELL. SITE CLEAR. USES BSC. ON SOFT DIET. CALL LIGHT WITHIN REACH SAFETY MEASURES IN PLACE. ALL NEEDS MET. NO OTHER SIGNIFICANT CHANGE IN CONDITION. WILL ENDORSE TO NEXT SHIFT FOR PETE.
--- NOTE | 2017-09-23 20:00 | NUR ---
BARREL DRUM CUTTER NOTE PT RECEIVED IN BED A/O X 3, NO SOB, NO DISTRESS OR DISCOMFORT NOTED. DENIES PAIN. FAMILY AT BED SIDE. ON TELE A FIB UNCONTROLLED HR 115. ABLE TO AMBULATE WITH SLOW STEADY GAIT WITH ASSIST. IVF NS @ 75 ML/HR INFUSING WELL, NO S/S OF INFILTRATION AT RFA #22 G. SIDE RAILS UP X 2 AND CALL LIGHT WITHIN REACH. VSS. CONTINUE TO MONITOR HER.
[2017-09-24 04:00] VITALS: BP 110/95
--- NOTE | 2017-09-24 05:03 | NUR ---
RN NOTES No significant change in condition. patient slept comfortably. All due meds given as ordered. No epsidoe of vomiting. No c/o nausea/ All nursing needs attended. Will continue to monitor.
[2017-09-24] MEDS: METOPROLOL TARTRATE 50 MG TABLET PO SCH ×3 (05:23→12:18)
[2017-09-24] MEDS: PIPERACILLIN /TAZOBACTAM 3.375 G in IV D5W 50 ML IV SCH ×2 (05:24→12:17)
--- NOTE | 2017-09-24 07:30 | NUR ---
NURSERY LABORER AM NOTES PATIENT IN BED, Sameer.OX3, ON 2LPM NC SATTING 9\98%. NO SOB OR DIFFICULTY BREATHING. PATIENT DENIES N/V/D AT THIS TIME. TELE UNCONTROLLED AFIB HR 92. AWARE. RFA G 22 WITH 1/2 NS AT 75 ML/HR INFUSING WELL. SITE CLEAR. USES BSC. ON SOFT DIET. SEE NURSING FLOWSHEET FOR SKIN ISSUES. CALL LIGHT WITHIN REACH SAFETY MEASURES IN PLACE. WILL CONTINUE TO MONITOR.
[2017-09-24] MEDS: ACETYLCYSTEINE 20% SOLN 800 MG/4 ML VIAL NEB SCH ×2 (07:37→15:30)
[2017-09-24] MEDS: IPRATROPIUM NEB FS 0.5 MG/2.5 ML AMPUL.NEB NEB SCH ×2 (07:37→15:30)
[2017-09-24] MEDS: ALBUTEROL FS 2.5 MG/3 ML VIAL.NEB NEB SCH ×2 (07:37→15:30)
[2017-09-24 08:00] VITALS: BP 105/66
[2017-09-24] MEDS: MONTELUKAST SODIUM (10MG) 10 MG TABLET PO SCH (08:26)
[2017-09-24] MEDS: PANTOPRAZOLE 40 MG TABLET.DR PO SCH (08:26)
[2017-09-24] MEDS: SERTRALINE HCL 50 MG TABLET PO SCH (08:26)
[2017-09-24] MEDS: ASPIRIN EC 325 MG TABLET.DR PO SCH (08:26)
[2017-09-24] MEDS: TRAZODONE 50 MG TABLET PO SCH (08:27)
[2017-09-24] MEDS: HYDROXYCHLOROQUINE 200 MG TABLET PO SCH (08:27)
[2017-09-24] MEDS: CYCLOBENZAPRINE 10 MG TABLET PO SCH (08:27)
--- NOTE | 2017-09-24 08:27 | NUR ---
EVENT EXECUTIVE NOTES SOLUMEDROL 40 MG IV ALREADY GIVEN WHEN DR. SIM CHANGED THE DOSAGE. BOTH AND ZACKARY AT PHARMACY AWARE.
[2017-09-24] MEDS: DILTIAZEM HCL CD 240 MG PO SCH (08:29)
[2017-09-24] MEDS: AMIODARONE HCL 200 MG TABLET PO SCH (08:30)
[2017-09-24] MEDS: POLYETHYLENE GLYCOL 3350 17 GM POWD.PACK PO SCH (08:33)
[2017-09-24] MEDS ORDERED: AMIO200T7 PO (08:35)
[2017-09-24] MEDS ORDERED: APIX5TAB PO (08:35)
[2017-09-24] MEDS ORDERED: METO50TA16 PO (08:35)
[2017-09-24] MEDS ORDERED: PANT40TA2 PO (08:35)
[2017-09-24] MEDS ORDERED: DILT240C64 PO (08:35)
[2017-09-24] MEDS ORDERED: AMOX-430 PO (08:38)
[2017-09-24] MEDS: MORPHINE SULFATE SR 30 MG TABLET.SA PO SCH (08:53)
[2017-09-24] MEDS ORDERED: APIXABAN 5 MG TABLET PO SCH (09:00)
[2017-09-24] MEDS ORDERED: methylPREDNISolone SOD SUCC 40 MG/ML VIAL IV SCH ×2 (09:00→13:00)
[2017-09-24 12:00] VITALS: BP 122/67
--- NOTE | 2017-09-24 12:17 | NUR ---
LARD REFINER NOTES STARTED ZOSYN IV.
[2017-09-24] MEDS: THEOPHYLLINE TAB 24HR 400 MG TAB.SR. PO SCH (15:29)
--- NOTE | 2017-09-24 15:51 | NUR ---
MEDICAL CLAIMS PROCESSOR NOTES REPORT GIVEN TO SUKHJINDER TUCKER. [facility]
[2017-09-24 16:00] VITALS: BP 120/70
--- NOTE | 2017-09-24 16:02 | NUR ---
TEMPLER HEAD NOTES PATIENT DISCHARGED TO [facility] TODAY PER MD IN STABLE CONDITION. PROVIDED DC INSTRUCTIONS, MED RECON LIST AND HEALTH TEACHINGS. PATIENT TO FOLLOW UP WITH PCP IN 1 WEEK OR PER FACILITY PROTOCOL. RT FA IV ACCESS REMOVED. APPLIED PRESSURE AND GAUZE, NO BLEEDING. ALL BELONGINGS CHECKED AND RETURNED. ALL PAPER WORKS SIGNED. WOUND CARE TREATMENT DONE EARLIER AND PATIENT NOW REFUSED TO HAVE PHOTOS OF SKIN ISSUES TAKEN AND JUST WANT TO GO. PATIENT PICKED UP BY 2 AMBULANCE PERSONNEL TO TRANSPORT PATIENT TO FACILITY.
== END 2017-09-24 16:30 | DRG 190 ==
LOC: ER 07:24 → TELE1 10:21 → TELE-TD 09-22 08:30 → TELE1 09-22 09:25
PROVIDERS: ADMIT Internal Medicine; ATTEND Internal Medicine
DX: J44.0 Chronic obstructive pulmonary disease with (acute) lower respiratory infection (principal); J15.9 Unspecified bacterial pneumonia; L89.150 Pressure ulcer of sacral region, unstageable; I48.0 Paroxysmal atrial fibrillation; C34.90 Malignant neoplasm of unspecified part of unspecified bronchus or lung; E86.0 Dehydration; E87.6 Hypokalemia; F32.9 Major depressive disorder, single episode, unspecified; J44.1 Chronic obstructive pulmonary disease with (acute) exacerbation; I25.10 Atherosclerotic heart disease of native coronary artery without angina pectoris; Z79.01 Long term (current) use of anticoagulants; Z87.891 Personal history of nicotine dependence; I25.2 Old myocardial infarction; S61.412A Laceration without foreign body of left hand, initial encounter; X58.XXXA Exposure to other specified factors, initial encounter; Y93.9 Activity, unspecified; Y92.009 Unspecified place in unspecified non-institutional (private) residence as the place of occurrence of the external cause; K59.09 Other constipation
CPT/HCPCS: 31720; 36415; 71045-TC; 80048-TC; 80053-TC; 80076-TC; 81000-TC; 83605-TC; 84484-TC; 85025-TC; 85730-TC; 86850-TC; 87040-TC; 87081-TC; 87086-TC; 94799-TC; A4216; A4606; J0282; J0696; J1160; J1650; J1956; J2405; J2543; J2920; J3475; J3480; J3490; J7030; J7040; J7060; Z7610

== ENCOUNTER 2017-10-04 23:51 | Inpatient (IN) | payer OTHER ==
[~2017-10-04 23:51] MED LIST changes: +ALBU2TAB4 PO; +AMIO200T7 PO; +AMOX-430 PO; +APIX5TAB PO; -CYCL-289 PO; +DILT240C64 PO; -FURO-144 PO; -IPRA0.2S18 HHN; -LEVO500T75 PO; +METO50TA16 PO; +PANT40TA2 PO; +POLY17PO4 PO; -PRED10TA PO; -PRED20TA PO; -VALA100026 PO
[2017-10-05] MEDS ORDERED: ALBUTEROL FS 2.5 MG/0.5 ML VIAL.NEB NEB ONE (00:30)
[2017-10-05] MEDS ORDERED: ALBUTEROL FS 2.5 MG/3 ML VIAL.NEB ONE (00:32)
[2017-10-05] MEDS ORDERED: IOHEXOL-350 100 ML VIAL IV ONE (00:59)
[2017-10-05] MEDS ORDERED: CT SWABBABLE VALVE TRANS SET 1 EA INFUS.SET MC ONE (00:59)
[2017-10-05] MEDS ORDERED: LEVOFLOXACIN 500 MG /D5W 100ML 500 MG/100 ML PIGGYBACK IV ONE (01:00)
[2017-10-05] MEDS ORDERED: IV NS 0.9% 250 ML IV ONE (01:00)
[2017-10-05] MEDS ORDERED: METO100T7 PO (01:22)
[2017-10-05] MEDS ORDERED: PANT40TA2 PO (01:22)
[2017-10-05] MEDS ORDERED: FLUT12AE5 IH (01:22)
[2017-10-05] MEDS ORDERED: SPIR25TA PO (01:22)
[2017-10-05] MEDS ORDERED: ROFL500T PO (01:22)
[2017-10-05] MEDS ORDERED: LEVO500T90 PO (01:22)
[2017-10-05] MEDS ORDERED: ACET1OOV6 HHN (01:22)
[2017-10-05] MEDS ORDERED: IPRA3AMP22 IH (01:22)
[2017-10-05] MEDS ORDERED: LEVALBUTEROL HCL NEB (01:22)
[2017-10-05] MEDS ORDERED: SPIR25OR PO (01:22)
[2017-10-05] MEDS ORDERED: IPRA12.9 IH (01:22)
[2017-10-05] MEDS ORDERED: LEVOFLOXACIN 500 MG /D5W 100ML 100 ML IV ONE (01:31)
[2017-10-05] MEDS ORDERED: IPRATROPIUM NEB FS 0.5 MG/2.5 ML AMPUL.NEB NEB PRN (03:30)
[2017-10-05] MEDS ORDERED: ACETAMINOPHEN 325 MG TABLET PO PRN (03:30)
[2017-10-05] MEDS ORDERED: ALBUTEROL FS 2.5 MG/0.5 ML VIAL.NEB NEB PRN (03:30)
[2017-10-05] MEDS ORDERED: VANCOMYCIN 1 GM in IV D5W 250 ML IV ONE (04:30)
[2017-10-05] MEDS ORDERED: PIPERACILLIN /TAZOBACTAM 3.375 G VIAL IV ONE (04:49)
[2017-10-05] MEDS ORDERED: VANCOMYCIN 1 GM VIAL ONE (04:49)
[2017-10-05] MEDS ORDERED: PIPERACILLIN /TAZOBACTAM 3.375 G in IV NS 0.9% 50 ML IV SCH (05:00)
[2017-10-05] MEDS ORDERED: ACETYLCYSTEINE 10% SOLN 400 MG/4 ML VIAL NEB SCH (07:05)
[2017-10-05] MEDS: ALBUTEROL FS 2.5 MG/0.5 ML VIAL.NEB NEB SCH ×3 (07:55→20:05)
[2017-10-05] MEDS: IPRATROPIUM NEB FS 0.5 MG/2.5 ML AMPUL.NEB NEB SCH ×3 (07:55→20:05)
[2017-10-05] MEDS ORDERED: FEE PK DOSING 1 MIN EA MC ONE (08:28)
[2017-10-05] MEDS: HYDROXYCHLOROQUINE 200 MG TABLET PO SCH ×2 (08:48→16:30)
[2017-10-05] MEDS: DILTIAZEM HCL CD 240 MG PO SCH (08:48)
[2017-10-05] MEDS: CYCLOBENZAPRINE 10 MG TABLET PO SCH (08:49)
[2017-10-05] MEDS: METOPROLOL SUCCINATE 50 MG TAB.SR.24H PO SCH (08:49)
[2017-10-05] MEDS: AMIODARONE HCL 200 MG TABLET PO SCH ×2 (08:50→21:37)
[2017-10-05] MEDS ORDERED: FLUTICASONE 220MCG 1 INHALER IH SCH ×2 (09:00)
[2017-10-05] MEDS ORDERED: ACETYLCYSTEINE 20% SOLN 800 MG/4 ML VIAL NEB SCH (09:00)
[2017-10-05] MEDS ORDERED: FLUTICASONE 110MCG 1 EA INHALER IH SCH (09:00)
[2017-10-05] MEDS ORDERED: METOPROLOL SUCCINATE 50 MG TAB.SR.24H PO SCH (09:00)
[2017-10-05] MEDS ORDERED: Medication Not On Formulary EA (Roflumilast (Daliresp) 500 MCG) PO SCH (09:00)
[2017-10-05] MEDS ORDERED: ALPRAZOLAM 0.5 MG TABLET PO PRN (09:00)
[2017-10-05] MEDS ORDERED: HYDROXYCHLOROQUINE 200 MG TABLET PO SCH (09:00)
[2017-10-05] MEDS: ACETYLCYSTEINE 10% SOLN 400 MG/4 ML VIAL HHN SCH ×2 (09:00→17:30)
[2017-10-05] MEDS ORDERED: Medication Not On Formulary EA (Cyclobenzaprine Hcl 10 MG) PO SCH (09:00)
[2017-10-05] MEDS: APIXABAN 5 MG TABLET PO SCH ×2 (09:45→16:30)
[2017-10-05] MEDS: PANTOPRAZOLE 40 MG TABLET.DR PO SCH (09:45)
[2017-10-05] MEDS: ALPRAZOLAM 0.25 MG TABLET PO PRN ×2 (12:13→23:49)
[2017-10-05] MEDS: PIPERACILLIN /TAZOBACTAM 3.375 G in IV D5W 100 ML IV SCH ×3 (12:15→23:07)
[2017-10-05] MEDS: THEOPHYLLINE TAB 24HR 400 MG TAB.SR. PO SCH (13:38)
[2017-10-05] MEDS ORDERED: VANCOMYCIN 0.75 GM in IV D5W 250 ML IV SCH (17:00)
[2017-10-05] MEDS: MONTELUKAST SODIUM (10MG) 10 MG TABLET PO SCH (21:36)
[2017-10-05] MEDS: TRAZODONE 50 MG TABLET PO SCH (21:37)
[2017-10-05] MEDS: VANCOMYCIN 1 GM in IV D5W 250 ML IV SCH (21:37)
[2017-10-06] MEDS: ALBUTEROL FS 2.5 MG/0.5 ML VIAL.NEB NEB SCH ×4 (00:46→19:39)
[2017-10-06] MEDS: IPRATROPIUM NEB FS 0.5 MG/2.5 ML AMPUL.NEB NEB SCH ×4 (00:46→19:39)
[2017-10-06] MEDS: PIPERACILLIN /TAZOBACTAM 3.375 G in IV D5W 100 ML IV SCH ×3 (05:36→19:05)
[2017-10-06] MEDS: HYDROXYCHLOROQUINE 200 MG TABLET PO SCH ×2 (08:03→17:15)
[2017-10-06] MEDS: ACETYLCYSTEINE 10% SOLN 400 MG/4 ML VIAL HHN SCH ×2 (09:08→19:39)
[2017-10-06] MEDS: PANTOPRAZOLE 40 MG TABLET.DR PO SCH (09:15)
[2017-10-06] MEDS: CYCLOBENZAPRINE 10 MG TABLET PO SCH (09:15)
[2017-10-06] MEDS: DILTIAZEM HCL CD 240 MG PO SCH (09:15)
[2017-10-06] MEDS: AMIODARONE HCL 200 MG TABLET PO SCH ×2 (09:15→21:31)
[2017-10-06] MEDS: SERTRALINE HCL 50 MG TABLET PO SCH (09:16)
[2017-10-06] MEDS: METOPROLOL SUCCINATE 50 MG TAB.SR.24H PO SCH (09:17)
[2017-10-06] MEDS: APIXABAN 5 MG TABLET PO SCH ×2 (09:19→17:14)
[2017-10-06] MEDS: THEOPHYLLINE TAB 24HR 400 MG TAB.SR. PO SCH (09:20)
[2017-10-06] MEDS ORDERED: POTASSIUM CHLORIDE 20 MEQ TAB.PRT.SR PO ONE ×2 (11:30→13:00)
[2017-10-06] MEDS: methylPREDNISolone SOD SUCC 40 MG/ML VIAL IV SCH ×2 (13:15→17:14)
[2017-10-06] MEDS: MORPHINE SULFATE SR 15 MG TABLET.SA PO SCH ×2 (13:55→21:31)
[2017-10-06] MEDS: FLUTICASONE 110MCG 1 EA INHALER IH SCH ×2 (13:57→17:20)
[2017-10-06] MEDS: VANCOMYCIN 1 GM in IV D5W 250 ML IV SCH (17:14)
[2017-10-06] MEDS: ALPRAZOLAM 0.25 MG TABLET PO PRN (19:39)
[2017-10-06] MEDS: MONTELUKAST SODIUM (10MG) 10 MG TABLET PO SCH (21:30)
[2017-10-06] MEDS: TRAZODONE 50 MG TABLET PO SCH (21:31)
[2017-10-07] MEDS: PIPERACILLIN /TAZOBACTAM 3.375 G in IV D5W 100 ML IV SCH ×4 (00:29→17:47)
[2017-10-07] MEDS: ALBUTEROL FS 2.5 MG/0.5 ML VIAL.NEB NEB SCH ×4 (00:51→19:30)
[2017-10-07] MEDS: IPRATROPIUM NEB FS 0.5 MG/2.5 ML AMPUL.NEB NEB SCH ×4 (00:51→19:30)
[2017-10-07] MEDS: ACETYLCYSTEINE 10% SOLN 400 MG/4 ML VIAL HHN SCH ×2 (08:00→17:00)
[2017-10-07] MEDS ORDERED: METOPROLOL SUCCINATE 50 MG TAB.SR.24H PO SCH (09:00)
[2017-10-07] MEDS: DILTIAZEM HCL CD 240 MG PO SCH (09:00)
[2017-10-07] MEDS: FLUTICASONE 110MCG 1 EA INHALER IH SCH ×2 (09:14→17:51)
[2017-10-07] MEDS: THEOPHYLLINE TAB 24HR 400 MG TAB.SR. PO SCH ×2 (09:15→17:50)
[2017-10-07] MEDS: APIXABAN 5 MG TABLET PO SCH ×2 (09:15→17:50)
[2017-10-07] MEDS: CYCLOBENZAPRINE 10 MG TABLET PO SCH (09:16)
[2017-10-07] MEDS: AMIODARONE HCL 200 MG TABLET PO SCH (09:16)
[2017-10-07] MEDS: PANTOPRAZOLE 40 MG TABLET.DR PO SCH (09:17)
[2017-10-07] MEDS: HYDROXYCHLOROQUINE 200 MG TABLET PO SCH ×2 (09:17→17:51)
[2017-10-07] MEDS: SERTRALINE HCL 50 MG TABLET PO SCH (09:19)
[2017-10-07] MEDS: methylPREDNISolone SOD SUCC 40 MG/ML VIAL IV SCH ×3 (09:19→17:48)
[2017-10-07] MEDS: VANCOMYCIN 1 GM in IV D5W 250 ML IV SCH (09:36)
[2017-10-07] MEDS: MORPHINE SULFATE SR 15 MG TABLET.SA PO SCH (10:55)
== END 2017-10-07 19:20 | disposition hospice, home (50) | DRG 871 ==
DX: A41.9 Sepsis, unspecified organism (principal); J18.9 Pneumonia, unspecified organism; J96.00 Acute respiratory failure, unspecified whether with hypoxia or hypercapnia; I82.402 Acute embolism and thrombosis of unspecified deep veins of left lower extremity; I48.91 Unspecified atrial fibrillation; C34.90 Malignant neoplasm of unspecified part of unspecified bronchus or lung; J44.0 Chronic obstructive pulmonary disease with (acute) lower respiratory infection; J44.1 Chronic obstructive pulmonary disease with (acute) exacerbation; I25.10 Atherosclerotic heart disease of native coronary artery without angina pectoris; F32.9 Major depressive disorder, single episode, unspecified; Z51.5 Encounter for palliative care; Z87.891 Personal history of nicotine dependence; Z79.01 Long term (current) use of anticoagulants; I25.2 Old myocardial infarction; E87.6 Hypokalemia